=== PATIENT | male | born 1960 | race Caucasian/White ===

== ENCOUNTER 2021-05-15 09:39 | Day surgery (SDC) | payer OTHER ==
[2021-05-15] MEDS ORDERED: Midazolam 1 MG/ML 2 ML SDV ONE (09:43)
[2021-05-15] MEDS ORDERED: fentaNYL 100 MCG/2 ML SDV ONE (09:43)
[2021-05-15] MEDS ORDERED: Propofol 200 MG/20 ML SDV ONE (09:43)
[2021-05-15] MEDS ORDERED: Sodium Chloride 0.9% 1,000 ML IV SCH (10:30)
--- NOTE | 2021-05-16 20:54 | OR ---
DATE OF PROCEDURE: 05/15/2021 SURGEON: Babatunde David MD PROCEDURE: Colonoscopy. FINDINGS: Descending colon polyp, approximately 8 mm, completely removed using endoscopic mucosal resection technique. COMPLICATIONS: None. NURSE OFFICE: None. ANESTHESIA: MAC. PREOPERATIVE DIAGNOSIS: Positive Cologuard. POSTOPERATIVE DIAGNOSIS: Positive Cologuard. RISKS: Risks, benefits, alternatives, and limitations including, but not limited to infection, bleeding, perforation, false positives, false negatives were explained to the patient who wished to proceed. PROCEDURE IN DETAIL: The patient was placed in left lateral decubitus position. Digital rectal exam was performed without abnormality. Scope was introduced and advanced atraumatically to the ileocecal valve. A photo was taken of this. Scope was brought back to the ascending, transverse, descending colon, and retroflexed. No evidence of old or new blood. No masses. The polyp was identified, elevated using Francheska Ink as the elevating agent and transected using hot snare wire device. No other abnormalities were noted. No abnormalities on retroflexion. Prep was acceptable, approximately 90% of the luminal surface. The patient tolerated the procedure well. Babatunde David MD /[id number]
== END 2021-05-15 12:21 | disposition home or self-care (01) ==
LOC: JP.SDS 09:39
PROVIDERS: ATTEND Surgery
DX: D12.4 Benign neoplasm of descending colon (principal)
CPT/HCPCS: 45390; J2250; J2704; J3010; J7030